=== PATIENT | female | born 1945 | race African-American/Black ===

== ENCOUNTER 2023-12-14 22:39 | Emergency (ER) | payer MEDICAID, MEDICARE ==
[~2023-12-14] VITALS: Ht 165.1 cm; Wt 65.0 kg
[2023-12-14] MEDS: KETOROLAC 15MG/ML VIAL IV ONE (23:43)
[2023-12-15 01:32] VITALS: TEMP 97.8
[2023-12-15] MEDS: KETAMINE HCL 50 MG/ML 10ML IV NR (01:40)
[2023-12-15 02:00] VITALS: BP 177/95; PULSE 80; RESP 18; O2SAT 100
== END 2023-12-15 03:08 | disposition home or self-care (01) ==
LOC: ER 22:39
DX: S43.004A Unspecified dislocation of right shoulder joint, initial encounter (principal); I10 Essential (primary) hypertension; W18.39XA Other fall on same level, initial encounter; Y93.89 Activity, other specified; Y92.89 Other specified places as the place of occurrence of the external cause; Y99.8 Other external cause status
CPT/HCPCS: 99291; 23650; 96374; 73030 ×2; 73630; 99152; J1885; J3490